=== PATIENT | male | born 1985 | race Caucasian/White ===

== ENCOUNTER 2018-01-02 17:58 | Inpatient (IN) ==
[2018-01-02] MEDS ORDERED: ceFAZolin 2 GM Premix Inj 2 GM/50 ML PIGGYBACK IV.SIG ONE (18:04)
[2018-01-02] MEDS ORDERED: Diphtheria/Tetanus/Pertussis Vaccine Inj 0.5 ML Syringe IM ONE (18:05)
[2018-01-02] MEDS ORDERED: Morphine Sulfate Inj 8 MG/ML Vial ONE (18:17)
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
[2018-01-02 18:32] LABS: Baso % (Auto) 0.3 % (0.0-2.0); Eos # (Auto) 0.2 th/mm3 (0.0-0.4); Eos % (Auto) 2.1 % (0.0-4.0); Hematocrit 42.4 % (39.0-51.0); Hemoglobin 14.2 gm/dL (13.0-17.0); Lymph # (Auto) 2.1 th/mm3 (1.0-4.8); Lymph % (Auto) 18.7 % (9.0-44.0); Mean Corpuscular HGB Conc 33.6 % (32.0-36.0); Mean Corpuscular Hemoglobin 29.7 pg (27.0-34.0); Mean Corpuscular Volume 88.4 fL (80.0-100.0); Mean Platelet Volume 9.6 fL (7.0-11.0); Mono # (Auto) 0.7 th/mm3 (0.0-0.9); Mono % (Auto) 5.8 % (0.0-8.0); Neut # (Auto) 8.2 th/mm3 (1.8-7.7); Neut % (Auto) 73.1 % (16.0-70.0); Platelet Count 178 th/mm3 (150-450); Red Blood Count 4.79 mil/mm3 (4.50-5.90); Red Cell Distribution Width 13.1 % (11.6-17.2); White Blood Count 11.2 th/mm3 (4.0-11.0)
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
[2018-01-02 18:50] LABS: INR 1.1 Ratio; Prothrombin Time 11.6 sec (9.8-11.6)
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
[2018-01-02] MEDS ORDERED: Lidocaine 1%/Epinephrine 1:100,000 Inj 20 ML Vial INFILTRATN ONE (18:54)
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
[2018-01-02] MEDS ORDERED: Lidocaine 1%/Epinephrine 1:100,000 Inj 50 ML Vial ONE (19:18)
[2018-01-02] MEDS ORDERED: Ketorolac Inj 30 MG/ML (IVP) Vial IV.PUSH PRN (19:24)
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
--- NOTE | 2018-01-02 20:19 | ED ---
Procedures Laceration Laceration 1: Site: face Side (If applicable): left Size (cm): 4 Description: linear Depth: simple, single layer Anesthetic used: with epi Anesthesia technique:: local infiltration Pre-repair:: wound explored and irrigated extensively Skin layer closed with: prolene Size (cm): 5-0 Number of sutures:: 9 Technique:: simple, interrupted Laceration 2: Site: scalp Side (If applicable): left Size (cm): 10 Description: linear Depth: simple, single layer Anesthetic used: with epi Pre-repair:: wound explored and irrigated extensively Skin layer closed with: prolene (11 sutures) and umm (10 umm) Size (cm): 5-0 Technique:: simple, interrupted
[2018-01-02] MEDS: Pantoprazole Inj 40 MG Vial IV.PUSH SCH (21:21)
[2018-01-02] MEDS: Docusate Sodium 100 MG Capsule PO SCH (21:21)
[2018-01-02] MEDS: Sod Chloride 0.9% Inj 1,000 ML IV.CONT SCH (21:22)
[2018-01-02] MEDS ORDERED: Morphine Inj 4 MG/ML Vial IV.PUSH PRN (22:00)
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
[2018-01-03] MEDS: Sod Chloride 0.9% Inj 1,000 ML IV.CONT SCH (08:44)
[2018-01-03] MEDS: Docusate Sodium 100 MG Capsule PO SCH ×2 (08:46→21:33)
[2018-01-03 08:50] LABS: Baso % (Auto) 0.1 % (0.0-2.0); Eos # (Auto) 0.1 th/mm3 (0.0-0.4); Eos % (Auto) 0.5 % (0.0-4.0); Hematocrit 37.9 % (39.0-51.0); Lymph # (Auto) 1.1 th/mm3 (1.0-4.8); Lymph % (Auto) 10.3 % (9.0-44.0); Mean Corpuscular HGB Conc 34.3 % (32.0-36.0); Mean Corpuscular Hemoglobin 29.8 pg (27.0-34.0); Mean Corpuscular Volume 86.9 fL (80.0-100.0); Mean Platelet Volume 9.9 fL (7.0-11.0); Mono # (Auto) 0.8 th/mm3 (0.0-0.9); Neut # (Auto) 9.1 th/mm3 (1.8-7.7); Neut % (Auto) 82.1 % (16.0-70.0); Platelet Count 146 th/mm3 (150-450); Red Blood Count 4.36 mil/mm3 (4.50-5.90); Red Cell Distribution Width 12.9 % (11.6-17.2); White Blood Count 11.1 th/mm3 (4.0-11.0)
[2018-01-03 09:19] LABS: Calcium 8.2 mg/dL (8.5-10.1); Carbon Dioxide 26.4 meq/L (21.0-32.0); Potassium 3.6 meq/L (3.5-5.1)
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
[2018-01-03] MEDS: Lidocaine 5% Patch T-DERMAL SCH (14:20)
[2018-01-03] MEDS: Enoxaparin Inj 30 MG/0.3 ML Syringe SQ SCH (21:32)
[2018-01-03] MEDS: Pantoprazole Inj 40 MG Vial IV.PUSH SCH (21:32)
[2018-01-04] MEDS: Enoxaparin Inj 30 MG/0.3 ML Syringe SQ SCH (09:15)
[2018-01-04] MEDS: Lidocaine 5% Patch T-DERMAL SCH (09:16)
[2018-01-04] MEDS: Docusate Sodium 100 MG Capsule PO SCH (09:16)
[2018-01-04] MEDS ORDERED: Ketorolac Inj 30 MG/ML (IVP) Vial IV.PUSH SCH (10:00)
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
== END 2018-01-04 12:44 | disposition home or self-care (01) ==
LOC: NEPI 17:58 → NEDA 19:01 → EDBD 19:01 → N07 20:26
PROVIDERS: ADMIT Surgery; ATTEND Surgery